=== PATIENT | female | born 1975 | race Caucasian/White ===

== ENCOUNTER 2024-12-28 14:19 | Outpatient (OUT) | payer MEDICAID, SELFPAY ==
--- NOTE | 2024-12-28 14:28 | XR_ITS ---
The [address] [address] Patient Name: DAVIN ACOSTA MRN: [id number] date: 1975 Sex: F Assigned Patient Location: [facility] Current Patient Location: [facility] Accession/Order Number: [id number] Exam Date: 12/28/2024 14:54 Report Date: 12/28/2024 14:54 At the request of: BRII VIVEROS AUDIO VISUAL PRODUCTION SPECIALIST Procedure: XR chest 2V Chest 2 views CLINICAL HISTORY: Cough, Shortness Of Breath, Wheezing COMPARISON: None FINDINGS: Heart normal size. Lungs are clear. No free air. XR/XR chest 2V IMPRESSION: NO ACUTE CARDIOPULMONARY ABNORMALITY. Impression dictated by: Pete Khan Jr. DAbelardoOAbelardo 12/28/2024 2:54 PM Dictation Location: [place] [address] Electronically authenticated by: [id number] Y Date: 12/28/2024 14:54
== END 2024-12-28 14:20 | disposition home or self-care (01) ==
PROVIDERS: Visit Provider Nurse Practitioner Primary Care
DX: R05.9 Cough, unspecified (principal); R06.02 Shortness of breath; R06.2 Wheezing
CPT/HCPCS: 71046